=== PATIENT | male | born 1965 | race Caucasian/White ===

== ENCOUNTER 2024-03-22 05:38 | Inpatient (IN) | payer BC, SELFPAY ==
[2024-03-22] VITALS (14 sets, daily range): BP systolic 135–158; BP diastolic 81–116; PULSE 87–104; RESP 12–26; TEMP 36.6–37.6; O2SAT 94–100
--- NOTE | ~2024-03-22 | XR_ITS ---
EXAMINATION: XR chest 1V portable DATE: 03/22/2024 06:40 INDICATION: Ethanol withdrawal. TECHNIQUE: A single frontal view of the chest was obtained on 2 radiographs. COMPARISON: None. FINDINGS: There is no pneumonia, pleural effusion, or pneumothorax. The heart size is normal. IMPRESSION: 1. No acute cardiopulmonary disease. Reviewed, dictated and finalized at location E.
--- NOTE | ~2024-03-22 | US_ITS ---
EXAMINATION: US venous doppler UE DATE: 03/23/2024 13:47 INDICATION: Upper limb edema. TECHNIQUE: Grayscale ultrasound images without and with compression and Doppler ultrasound images of the bilateral upper extremity veins were obtained. COMPARISON: None. FINDINGS: The visualized portions of the right internal jugular vein, subclavian vein, axillary vein, brachial veins, basilic vein, cephalic vein, radial vein, and ulnar vein are patent. The visualized portions of the left internal jugular vein, subclavian vein, axillary vein, brachial v eins, basilic vein, cephalic vein, radial vein, and ulnar vein are patent. IMPRESSION: 1. No deep venous thrombosis. Reviewed, dictated and finalized at location E.
--- NOTE | ~2024-03-22 | US_ITS ---
EXAMINATION: US venous doppler [facility] DATE: 03/23/2024 14:01 INDICATION: Bilateral lower limb swelling TECHNIQUE: Grayscale ultrasound images without and with compression and Doppler ultrasound images of the bilateral lower extremity veins were obtained. COMPARISON: None. FINDINGS: The visualized portions of right common femoral vein, profunda (deep) femoral vein, femoral vein, pop liteal vein, posterior tibial veins, peroneal veins, gastrocnemius vein and greater saphenous vein ou tflow are patent. The visualized portions of left common femoral vein, profunda femoral vein, femoral vein, popliteal v ein, posterior tibial veins, peroneal veins, gastrocnemius vein and greater saphenous vein outflow ar e patent. IMPRESSION: 1. No deep venous thrombosis in either lower limb. Reviewed, dictated and finalized at location A.
--- NOTE | 2024-03-22 05:45 | ECG_ITS ---
Test Date: 2024-03-22 06:00:59 Measurements Intervals [place] Rate: 99 P: 73 OK: 183 QRS: 93 QRSD: 101 T: 52 QT: 350 QTc: 450 Interpretive Statements BASELINE ARTIFACT, REDUCED ECG QUALITY SINUS RHYTHM WITH OCCASIONAL VENTRICULAR PREMATURE COMPLEXES BORDERLINE RIGHT AXIS DEVIATION [QRS AXIS > 90] CONSIDER PREVIOUS ANTEROSEPTAL NV ABNORMAL ECG No previous ECG available for comparison Electronically Signed On 03-22-2024 15:16:40 CDT by Harry Betancourt M.D.
--- NOTE | 2024-03-22 05:59 | ED.GENADULT ---
HPI - General Adult General Chief complaint: Alcohol Stated complaint: etoh withdrawl Time Seen by Provider: 03/22/24 05:57 History of Present Illness HPI narrative: This is a 59-year-old male presenting ED with chief complaint of alcohol withdrawal. Patient says he has been a chronic alcoholic for 10 years. He drinks around 2 gal of vodka a day. Patient says that his last drink was 12 hours ago when he had 2 beers to try to stave off his alcohol withdrawals. Patient is now complaining of tremors, anxiety, diaphoresis. Patient has a history of alcohol withdrawal seizures Related Data Allergies Allergy/AdvReac Type Severity Reaction Status Date / Time No Known Allergies Allergy Verified 03/22/24 05:43 [facility] Past Medical History Medical History Diabetes ETOHism HTN (hypertension) Exam Narrative: APPEARANCE: Patient appears uncomfortable, coarse tremors Head: atraumatic. EYES: EOMI, NOSE: Atraumatic NECK: Trachea midline RESPIRATORY: No increased rate of breathing CTAB CARDIOVASCULAR: tachycardic ABDOMINAL: distended, soft no guarding or rebound. MUSCULOSKELETAl: No obvious deformities NEURO: Alert. Moving 4/4 extremities SKIN:: diaphoretic PSYCHIATRIC: Normal affect Course Vital Signs Vital signs: Vital Signs Temperature 98.3 F 03/22/24 05:34 Pulse Rate 101 H 03/22/24 05:34 Respiratory Rate 03/22/24 05:34 Blood Pressure 157/116 H 03/22/24 05:34 Pulse Oximetry 100 03/22/24 05:34 Oxygen Delivery Room Air 03/22/24 05:34 Temperature 98.3 F 03/22/24 05:34 Pulse Rate 101 H 03/22/24 05:34 Respiratory Rate 17 03/22/24 05:34 Blood Pressure 157/116 H 03/22/24 05:34 Pulse Oximetry 100 03/22/24 05:34 Oxygen Delivery Room Air 03/22/24 05:34 Medical Decision Making MDM Narrative Medical decision making narrative: -Course: 59-year-old male history of alcohol abuse presenting for withdrawal. last drink 12 hours ago. the patient's alcohol levels undetectable. Patient wants to stop drinking. CIWA score of 11. no signs of DTs. Given Ativan and Librium, 1L Normal saline and thiamine. patient is hypomagnesemic which will be repleted. Patient be admitted for management of alcohol withdrawal. UA and UDS pending at time of admission. 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 alcohol undetectable Independent EKG interpretation: Rhythm [sinus], Rate [100], Roy -[normal], IA -[normal], QRS [narrow], QTC [normal], T waves -[negative for concerning inversions], ST Segments - [Negative for concerning elevations] Final interpretations: [Normal Sinus Rhythm] -Discussion of Management/Consultants: Marlin - Hospitalist -Interventions: 2 L normal saline, 25 mg Librium, 2mg ativan, Thiamine 500mg, 2 g mag -Shared decision making / Disposition: admitted Vital Signs Vital Signs: Vital Signs Temperature 98.3 F 03/22/24 05:34 Pulse Rate 101 H 03/22/24 05:34 Respiratory Rate 17 03/22/24 05:34 Blood Pressure 157/116 H 03/22/24 05:34 Pulse Oximetry 100 03/22/24 05:34 Oxygen Delivery Room Air 03/22/24 05:34 Temperature 98.3 F 03/22/24 05:34 Pulse Rate 101 H 03/22/24 05:34 Respiratory Rate 17 03/22/24 05:34 Blood Pressure 157/116 H 03/22/24 05:34 Pulse Oximetry 100 03/22/24 05:34 Oxygen Delivery Room Air 03/22/24 05:34 Discharge Plan Discharge Clinical Impression: ETOHism, Alcohol withdrawal Patient Disposition: Still a Patient Condition: Stable Follow-up/Referrals: UNKNOWN,DOCTOR [Primary Care Provider] -
[2024-03-22] MEDS: SODIUM CHLORIDE 0.9% IV 1,000 ML 999 ML IV CONT ×2 (06:01→06:02)
[2024-03-22 06:05] LABS: Basophils Percent Auto 0.8 % (0.2-1.2); Eosinophils Absolute Auto 0.4 K/mm3 (0-0.3); Eosinophils Percent Auto 7.2 % (0-4.4); Hematocrit 35.3 % (42.0-52.0); Hemoglobin 12.3 g/dL (14.0-18.0); Immature Granulocyte Absolute 0.02 K/mm3 (0.00-0.031); Immature Granulocyte Percent A 0.4 % (0-0.5); Lymphocytes Percent Auto 46.6 % (18.3-44.2); Mean Corpuscular HGB Conc 34.8 g/dl (32-36); Mean Corpuscular Hemoglobin 36.9 pg (26-34); Mean Platelet Volume 10.6 fl (7.4-10.4); Monocytes Absolute Auto 0.8 K/mm3 (0.1-0.6); Monocytes Percent Auto 15.7 % (2.6-8.5); Neutrophils Absolute Auto 1.5 K/mm3 (1.3-6.7); Neutrophils Percent Auto 29.3 % (45.5-73.1); Platelet Count Result 154 k/mm3 (150-375); Red Blood Count 3.33 M/mm3 (4.6-6.20); Red Cell Distribution Width 13.4 % (11.5-14.5); White Blood Count 5.2 K/mm3 (4.5-10.0)
[2024-03-22] MEDS: THIAMINE 500 MG/NS 100 ML 500 MG/100 ML BAG 200 MG IVPB (06:18)
[2024-03-22 06:32] LABS: Ethanol < 10 mg/dL (<10)
--- NOTE | 2024-03-22 06:32 | ECG_ITS ---
Test Date: 2024-03-22 06:54:13 Measurements Intervals [place] Rate: 100 P: 60 AR: 173 QRS: 86 QRSD: 96 T: 34 QT: 367 QTc: 473 Interpretive Statements SINUS TACHYCARDIA SEPTAL MYOCARDIAL INFARCTION , PROBABLY OLD [40+ ms Q WAVE IN V1/V2] BORDERLINE RIGHTWARD AXIS ABNORMAL ECG Compared to ECG 03/22/2024 06:00:59 NO OBVIOUS DIFFERENCE Electronically Signed On 03-22-2024 15:17:24 CDT by Harry Betancourt M.D.
[2024-03-22 06:34] LABS: Macrocytosis 1+ (NORMAL); Platelet Estimate Adequate (Adequate); Schistocytes None Seen
[2024-03-22 06:43] LABS: Alanine Aminotransferase 49 U/L (6-50); Albumin Level 3.5 g/dL (3.5-5.1); Alkaline Phosphatase 48 U/L (38-126); Anion Gap 12 mmol/L (4-12); Aspartate Amino Transferase 55 U/L (17-59); Bilirubin,Total 0.3 mg/dL (0.2-1.3); Blood Urea Nitrogen 13 mg/dL (9-20); Calcium 9.1 mg/dL (8.4-10.2); Carbon Dioxide 21 mmol/L (22-30); Chloride 102 mmol/L (98-107); Estimated CRCL calculation 118 ml/min; Estimated Glomerular Filt Rate > 60; Glucose 340 mg/dL (65-110); Lipase 234 U/L (23-300); Magnesium 1.3 mg/dL (1.6-2.3); Potassium 3.5 mmol/L (3.4-5.0); Sodium 135 mmol/L (137-145)
--- NOTE | 2024-03-22 06:50 | PC.NURSE ---
Bedside glucose is 319.
[2024-03-22 06:51] LABS: Glucose Point of Care 319 mg/dl (65-105)
[2024-03-22] MEDS: LORazepam INJ (*CRX) 2 MG/ML VIAL IV PUSH ×2 (06:51→20:59)
[2024-03-22] MEDS: chlordiazePOXIDE (*CRX) 25 MG CAPSULE PO ×2 (06:51→18:05)
[2024-03-22 07:07] LABS: Appearance Urine Clear (Clear); Bilirubin Urine Negative (Negative); Blood Urine Negative (Negative); Color Urine Yellow (Yellow); Glucose Urine UA 3+ mg/dL (Negative); Ketones Urine Trace mg/dL (Negative); Leukocyte Esterase Ur Negative LEU/UL (Negative); Nitrate Urine Negative (Negative); Protein Urine Negative (Negative); Specific Grav Ur 1.029 (1.001-1.035); Urobilinogen Urine 0.2 mg/dL (<2.0)
[2024-03-22] MEDS: MAGNESIUM SULF 2 GM/WATER 50ML 2 GM/50 ML BAG IVPB (07:09)
[2024-03-22 07:16] LABS: Add Urine Microscopic? NO
[2024-03-22 07:23] LABS: Amphetamine Screen Urine Negative (Negative); Barbiturate Screen Urine Negative (Negative); Benzodiazepines Screen Urine Positive (Negative); Cannabinoid Screen Urine Positive (Negative); Cocaine Screen Urine Negative (Negative); Methadone Screen Urine Negative (Negative); Opiate Screen Urine Negative (Negative); Phencyclidine Screen Urine Negative (Negative)
--- NOTE | 2024-03-22 08:07 | ADMGEN ---
This patient, Bro Padron, was admitted to Intensive Care Unit-6. Patient/family oriented to hospital policies and general routines including ID bracelet, bed and alarms, visiting hours, pain management, procedures, bathroom and other care routines, personal items, smoking policy, room service/diet, and visiting hours. Information on how to activate the Rapid Response Team has been discussed. Patient/Family are encouraged to report perceived risks to care and to ask questions if they do not understand what they are told or what they should do.
[2024-03-22] MEDS: THIAMINE HCL 200 MG/2 ML VIAL 100 MG IV PUSH (09:29)
[2024-03-22 11:44] LABS: Glucose Point of Care 192 mg/dl (65-105)
--- NOTE | 2024-03-22 13:57 | PM.IMHP ---
H&P: HPI History of Present Illness Date/Time: 03/22/24 14:00 Chief Complaint: Alcohol withdrawal. Narrative: This is a 59-year-old male with history of alcohol abuse, alcohol withdrawal seizures, coronary artery disease status post stent, hepatitis-C, and hypertension who presented to the emergency department via EMS from with symptoms of alcohol withdrawal. The patient provides the following history. He has never been seen at this facility; he is in the area for a job and is from [place]. He has been heavy drinker for at least 10 years and can drink up to to handles of vodka a day. He has had periods of sobriety or will go for a few days without drinking however the withdrawal symptoms seem to drive him back to drinking. His last drink was about 12 hours ago and this morning he has started to experience significant anxiety, sweats, tremors, nausea, and vomiting. He has also noticed swelling in his extremities the last couple of days which he thinks is due to the drinking in the heat. He thinks he may have had a seizure today but cannot provide specifics. He denies fever, cold and flu symptoms, chest pain, pleuritic pain, shortness of breath, hematemesis, melena, hematochezia, dysuria, and diarrhea. In fact he reports being constipated and states he has not had a bowel movement for approximately 5 days. In the ED: He was tachycardic with a blood pressure of 157/116 on arrival. Labs were significant for WBC count of 5.2, hemoglobin 12.3, MCV 106, sodium 135, potassium 3.5, magnesium 1.3, glucose 340. Urine was positive for 3+ glucose and trace ketones. He tested positive for benzodiazepines and cannabinoids. Chest x-ray showed no acute cardiopulmonary disease. He was given thiamine 100 mg IV, magnesium sulfate 2 g IV, 2 L normal saline, and lorazepam 2 mg and he is being admitted in this setting for further treatment. Review of Systems Review of Systems: 12 systems were reviewed and are negative except for as per HPI. [facility] Past Medical History Medical History (Updated 03/22/24 @ 23:44 by Ladi Madden PA-C) Alcohol abuse Alcohol withdrawal seizure Coronary artery disease Hypertension Type 2 diabetes mellitus Surgical History Surgical History (Updated 03/22/24 @ 23:44 by Ladi Madden PA-C) History of cardiac catheterization History of coronary artery stent placement Family History Family History Other Unknown family medical history Social History Social History (Updated 03/22/24 @ 23:45 by Ladi Madden PA-C) Social History: Surrogate decision maker: Patient provides no surrogate decision maker. He gives us permission to call his friend, Jonnie Ansari, ?only if I ?. Code status: Full code. Tobacco type: smokeless tobacco Alcohol intake: current Alcohol use details: Up to 2 handles of vodka a day. Substance use type: marijuana Additional living arrangements comments: From [place]. He is in [place] for job at the moment. 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 Meds Home Medications and Allergies Home Medications Medication Instructions Recorded Confirmed Type folic acid 1 mg tablet 1 mg PO DAILY 03/22/24 03/22/24 History furosemide 20 mg tablet 20 mg PO DAILY 03/22/24 03/22/24 History gabapentin 300 mg capsule 300 mg PO TID 03/22/24 03/22/24 History lisinopril 10 mg tablet 10 mg PO DAILY 03/22/24 03/22/24 History metformin 1,000 mg tablet 1,000 mg PO BID 03/22/24 03/22/24 History quetiapine 100 mg tablet 600 mg PO HS 03/22/24 03/22/24 History Allergies Allergy/AdvReac Type Severity Reaction Status Date / Time No Known Allergies Allergy Verified 03/22/24 05:43 Vital Signs Vital Signs - 24 hr 03/22/24 05:34 03/22/24 06:07 03/22/24 06:32 Temperature 98.3 F Pulse Rate 101 H 101 H 101 H Respiratory Rate 17 26 H 23 H Blood Pressure 157/116 H 155/100 H 156/81 H Pulse Oximetry 100
[2024-03-23] VITALS (13 sets, daily range): BP systolic 142–163; BP diastolic 73–110; PULSE 69–93; RESP 16–21; TEMP 36.4–37; O2SAT 90–100
[2024-03-23] MEDS: MAGNESIUM HYDROXIDE SUSP 30 ML UDC PO (00:12)
[2024-03-23] MEDS: QUEtiapine FUMARATE 100 MG TABLET PO ×2 (00:12→21:33)
[2024-03-23 00:17] LABS: Glucose Point of Care 287 mg/dl (65-105)
[2024-03-23] MEDS: LORazepam INJ (*CRX) 2 MG/ML VIAL IV PUSH ×4 (00:18→21:33)
[2024-03-23] MEDS: chlordiazePOXIDE (*CRX) 25 MG CAPSULE PO ×2 (04:05→09:50)
[2024-03-23 04:45] LABS: Hematocrit 36.8 % (42.0-52.0); Hemoglobin 12.3 g/dL (14.0-18.0); Mean Corpuscular HGB Conc 33.4 g/dl (32-36); Mean Corpuscular Hemoglobin 37.3 pg (26-34); Mean Corpuscular Volume 111.5 fl (80-100); Mean Platelet Volume 10.6 fl (7.4-10.4); Platelet Count Result 126 k/mm3 (150-375); Red Cell Distribution Width 13.2 % (11.5-14.5); White Blood Count 4.8 K/mm3 (4.5-10.0)
[2024-03-23 05:08] LABS: Alanine Aminotransferase 51 U/L (6-50); Alkaline Phosphatase 25 U/L (38-126); Anion Gap 4 mmol/L (4-12); Aspartate Amino Transferase 55 U/L (17-59); Bilirubin,Total 0.6 mg/dL (0.2-1.3); Blood Urea Nitrogen 14 mg/dL (9-20); Calcium 8.3 mg/dL (8.4-10.2); Carbon Dioxide 27 mmol/L (22-30); Chloride 106 mmol/L (98-107); Creatine Kinase 112 U/L (55-170); Estimated CRCL calculation 118 ml/min; Estimated Glomerular Filt Rate > 60; Glucose 140 mg/dL (65-110); Magnesium 1.9 mg/dL (1.6-2.3); Potassium 4.1 mmol/L (3.4-5.0); Sodium 137 mmol/L (137-145)
[2024-03-23] MEDS: GABAPENTIN 300 MG CAPSULE PO ×3 (08:08→20:50)
[2024-03-23] MEDS: FUROSEMIDE 20 MG TABLET PO (08:08)
[2024-03-23] MEDS: lisinopriL 10 MG TABLET PO (08:08)
[2024-03-23] MEDS: THIAMINE HCL 200 MG/2 ML VIAL 100 MG IV PUSH (08:08)
[2024-03-23] MEDS: ENOXAPARIN 40 MG/0.4 ML SYRINGE SUB-Q (08:08)
[2024-03-23] MEDS: FOLIC ACID 1 MG TABLET PO (08:08)
--- NOTE | 2024-03-23 08:10 | PC.NURSE ---
Patient complains of IV pain with ativan administration. Administration stopped post 2 ml of 10 ml diluted ativan infusion. Blood return noted and no signs of infiltration noted to IV site post administration. Flushed with saline without complaints. Keily Counts notified of need for IV per patient request.
--- NOTE | 2024-03-23 09:00 | PC.NURSE ---
New IV initiated per D Counts. Patient veins reported to be poor. Patient complains of pain again with ativan administration in new IV. Again, Blood return noted post infusion and no signs of infiltration present. Patient demands new IV and repeat ativan infusion. States I've done enough dope in my life to know that if it hurts, it wont work. Patient notified ativan infusion can be painful despite dilution. Patient repeats demand for another dose. Explained dose cannot be repeated as potential for respiratory depression with duplicate IV ativan dosing. Patient states did not receive dose due to pain. Patient educated on possibility of pain with IV ativan administration repeated. Notified new IV can be attempted but patient's veins are poor and attempt may not be successful. Patient states he does not have poor veins. Patient demands to speak with my purification supervisor. Romelia, charge nurse, notified.
[2024-03-23 11:44] LABS: Glucose Point of Care 185 mg/dl (65-105)
--- NOTE | 2024-03-23 13:50 | PM.IMPN ---
Progress Note: A&P Assessment and Plan (1) Alcohol withdrawal: Code(s): F10.939 - Alcohol use, unspecified with withdrawal, unspecified Status: Acute (2) Hypomagnesemia: Code(s): E83.42 - Hypomagnesemia Status: Acute (3) Macrocytic anemia: Code(s): D53.9 - Nutritional anemia, unspecified Status: Acute (4) Type 2 diabetes mellitus: Code(s): E11.9 - Type 2 diabetes mellitus without complications Status: Acute (5) Hypertension: Code(s): I10 - Essential (primary) hypertension Status: Acute Plan This is a 59-year-old male with history of alcohol abuse, alcohol withdrawal seizures, coronary artery disease status post stent, hepatitis-C, and hypertension who presented to the emergency department via EMS from with symptoms of alcohol withdrawal. The patient provides the following history. He has never been seen at this facility; he is in the area for a job and is from [place]. He has been heavy drinker for at least 10 years and can drink up to to handles of vodka a day. He has had periods of sobriety or will go for a few days without drinking however the withdrawal symptoms seem to drive him back to drinking. His last drink was about 12 hours ago and this morning he has started to experience significant anxiety, sweats, tremors, nausea, and vomiting. He has also noticed swelling in his extremities the last couple of days which he thinks is due to the drinking in the heat. He thinks he may have had a seizure today but cannot provide specifics. He denies fever, cold and flu symptoms, chest pain, pleuritic pain, shortness of breath, hematemesis, melena, hematochezia, dysuria, and diarrhea. In fact he reports being constipated and states he has not had a bowel movement for approximately 5 days. In the ED: He was tachycardic with a blood pressure of 157/116 on arrival. Labs were significant for WBC count of 5.2, hemoglobin 12.3, MCV 106, sodium 135, potassium 3.5, magnesium 1.3, glucose 340. Urine was positive for 3+ glucose and trace ketones. He tested positive for benzodiazepines and cannabinoids. Chest x-ray showed no acute cardiopulmonary disease. He was given thiamine 100 mg IV, magnesium sulfate 2 g IV, 2 L normal saline, and lorazepam 2 mg and he is being admitted in this setting for further treatment. Last drink was approximately 12 hours prior to presentation. He has a history of alcohol withdrawal seizures and admitted for alcohol withdrawal. On CIWA protocol. Schedule Librium. Will increase to 50 q.8. He has also been started on thiamine and folic acid supplementation. Hold on further IV fluids given mild edema in all extremities. patient is alert oriented x3 and also able to verbalize his history of present illness. If adamant at going home he is deemed decisional at this time and will need to leave against medical advice. Venous Doppler ultrasounds Negative for DVT on upper extremity lower extremities pending. Hypomagnesmia: Magnesium will be replaced and monitored. Hypertension home medication History of hepatitis-C untreated Follow-up as an outpatient basis DVT prophylaxis Lovenox Code status full code Subjective Date/time seen: 03/23/24 13:50 Interval history: Patient continues to be agitated. Adamant of discharging. Does not have a ride home. CIWA score still high 18 earlier today. No other new complaints Review of Systems Review of Systems: All systems reviewed & are unremarkable except as noted in HPI and below Exam Narrative: General: Mildly ill-appearing gentleman in the semi-Fuchs position in bed. not in acute distress HEENT: Normocephalic, atraumatic. PERRL, EOMI. Sclera anicteric. Conjunctiva mildly injected. Tacky mucous membranes. Edentulous. Neck: Supple. Respiratory: Respirations are nonlabored and he is speaking in full sentences. Lungs are clear to auscultation bilaterally. Cardiovascular: Regular rate and rhythm with S1-S2. Gastr
[2024-03-23] MEDS: chlordiazePOXIDE (*CRX) 25 MG CAPSULE 50 MG PO (17:51)
[2024-03-23 18:18] LABS: Glucose Point of Care 216 mg/dl (65-105)
[2024-03-24] VITALS (12 sets, daily range): BP systolic 132–160; BP diastolic 60–109; PULSE 73–85; RESP 15–18; TEMP 36.3–36.9; O2SAT 90–98
[2024-03-24] MEDS: chlordiazePOXIDE (*CRX) 25 MG CAPSULE 50 MG PO ×3 (00:49→17:07)
[2024-03-24] MEDS: FUROSEMIDE 20 MG TABLET PO (08:29)
[2024-03-24] MEDS: FOLIC ACID 1 MG TABLET PO (08:29)
[2024-03-24] MEDS: lisinopriL 10 MG TABLET PO (08:29)
[2024-03-24] MEDS: ENOXAPARIN 40 MG/0.4 ML SYRINGE SUB-Q (08:29)
[2024-03-24] MEDS: LORazepam INJ (*CRX) 2 MG/ML VIAL IV PUSH ×4 (08:31→21:23)
[2024-03-24] MEDS: THIAMINE HCL 200 MG/2 ML VIAL 100 MG IV PUSH (08:32)
[2024-03-24 09:28] LABS: Basophils Percent Auto 0.7 % (0.2-1.2); Eosinophils Absolute Auto 0.5 K/mm3 (0-0.3); Eosinophils Percent Auto 8.5 % (0-4.4); Hematocrit 37.3 % (42.0-52.0); Hemoglobin 12.9 g/dL (14.0-18.0); Immature Granulocyte Absolute 0.02 K/mm3 (0.00-0.031); Immature Granulocyte Percent A 0.4 % (0-0.5); Lymphocytes Absolute Auto 1.66 K/mm3 (0.9-3.2); Lymphocytes Percent Auto 29.3 % (18.3-44.2); Mean Corpuscular HGB Conc 34.6 g/dl (32-36); Mean Corpuscular Hemoglobin 37.1 pg (26-34); Mean Corpuscular Volume 107.2 fl (80-100); Mean Platelet Volume 10.2 fl (7.4-10.4); Monocytes Absolute Auto 0.4 K/mm3 (0.1-0.6); Monocytes Percent Auto 7.6 % (2.6-8.5); Neutrophils Percent Auto 53.5 % (45.5-73.1); Platelet Count Result 146 k/mm3 (150-375); Red Blood Count 3.48 M/mm3 (4.6-6.20); Red Cell Distribution Width 13.2 % (11.5-14.5); White Blood Count 5.7 K/mm3 (4.5-10.0)
[2024-03-24 09:38] LABS: Alanine Aminotransferase 66 U/L (6-50); Albumin Level 3.3 g/dL (3.5-5.1); Alkaline Phosphatase 32 U/L (38-126); Anion Gap 4 mmol/L (4-12); Aspartate Amino Transferase 71 U/L (17-59); Bilirubin,Total 0.4 mg/dL (0.2-1.3); Blood Urea Nitrogen 17 mg/dL (9-20); Calcium 8.5 mg/dL (8.4-10.2); Carbon Dioxide 31 mmol/L (22-30); Chloride 102 mmol/L (98-107); Estimated CRCL calculation 108 ml/min; Estimated Glomerular Filt Rate > 60; Glucose 215 mg/dL (65-110); Magnesium 1.7 mg/dL (1.6-2.3); Potassium 4.1 mmol/L (3.4-5.0); Sodium 137 mmol/L (137-145)
[2024-03-24 09:48] LABS: Macrocytosis 1+ (NORMAL); Platelet Estimate Slightly Decreased (Adequate); Schistocytes None Seen
--- NOTE | 2024-03-24 12:00 | PM.IMPN ---
Progress Note: A&P Assessment and Plan (1) Alcohol withdrawal: Code(s): F10.939 - Alcohol use, unspecified with withdrawal, unspecified Status: Acute (2) Hypomagnesemia: Code(s): E83.42 - Hypomagnesemia Status: Acute (3) Macrocytic anemia: Code(s): D53.9 - Nutritional anemia, unspecified Status: Acute (4) Type 2 diabetes mellitus: Code(s): E11.9 - Type 2 diabetes mellitus without complications Status: Acute (5) Hypertension: Code(s): I10 - Essential (primary) hypertension Status: Acute Plan Last drink was approximately 12 hours prior to presentation. He has a history of alcohol withdrawal seizures and admitted for alcohol withdrawal. On CIWA protocol. On scheduled Librium at 50 q.8. He has also been started on thiamine and folic acid supplementation. Monitor CIWA. Holding further IV fluids given mild edema in all extremities. Venous Doppler ultrasounds Negative for DVT in the upper and lower extremities. Hypomagnesemia noted and better after replacement. Hypertension: Patient's blood pressure was reviewed on 03/24. Blood pressure remains well controlled. Anemia - check iron, B12 etc DM - glucose elevated at times but overall reasonably well conrolled. History of hepatitis-C that is untreated. Follow-up as an outpatient basis On Seroquel at home listed at 600mg QHS. Only on 100mg dose here. Unclear if he is taking this much. Will advance to 150mg daily and slowly advance as tolerated. DVT prophylaxis Lovenox Code status full code Subjective Date/time seen: 03/24/24 12:00 Interval history: 59yo male with alcoholism, CAD, hx of withdrawal seizures, HTN and DM here for alcohol withdrawal. Assuming care. Chart reviewed. He is eating okay. Slept well last night. No CP or SOB. No n/v. He denies hallucinations but told the RN earlier that he was. Exam Narrative: AF 98.4 132/76 77 15 96% ra Gen - NARD Chest - CTA bilaterally, nml RR CV - RRR S1/S2. Tele showing no significant dysrhythmias Abd - Soft, obese, NT Ext - No pedal edema Psych - Nml mood and affect Skin - Warm and dry Objective Data Vital Signs Vital Signs: Vital Signs - 24 hr 03/23/24 14:00 03/23/24 16:00 03/23/24 16:00 Temperature 98.6 F Pulse Rate 84 75 69 Respiratory Rate 20 20 Blood Pressure 163/110 H Pulse Oximetry 98 94 Oxygen Delivery Room Air Fraction of Inspired Oxygen 03/23/24 16:00 03/23/24 18:00 03/23/24 20:45 Temperature Pulse Rate 69 82 81 Respiratory Rate 17 Blood Pressure Pulse Oximetry 90 Oxygen Delivery Room Air Fraction of Inspired Oxygen 28 03/23/24 20:00 03/23/24 20:00 03/23/24 22:00 Temperature 98.6 F Pulse Rate 81 80 85 Respiratory Rate 17 Blood Pressure 142/73 H Pulse Oximetry 90 Oxygen Delivery Fraction of Inspired Oxygen 03/24/24 00:05 03/24/24 00:00 03/24/24 00:00 Temperature 98.4 F Pulse Rate 85 80 81 Respiratory Rate 17 15 Blood Pressure 146/83 H Pulse Oximetry 90 94 Oxygen Delivery Room Air Fraction of Inspired Oxygen 28 03/24/24 02:00 03/24/24 03:52 03/24/24 04:00 Temperature 98.2 F Pulse Rate 75 75 74 Respiratory Rate 17 16 Blood Pressure 160/109 H Pulse Oximetry 90 95 Oxygen Delivery Room Air Fraction of Inspired Oxygen 28 03/24/24 04:00 03/24/24 06:00 03/24/24 08:00 Temperature 98.4 F Pulse Rate 79 73 79 Respiratory Rate 15 Blood Pressure 132/76 Pulse Oximetry 94 Oxygen Delivery Fraction of Inspired Oxygen 03/24/24 08:27 03/24/24 08:00 03/24/24 10:00 Temperature Pulse Rate 78 77 Respiratory Rate Blood Pressure Pulse Oximetry 96 Oxygen Delivery Room Air Fraction of Inspired Oxygen 21 Intake/Output Intake/Output: Intake & Output 03/21/24 03/22/24 03/23/24 03/24/24 23:59 23:59 23:59 23:59 Intake Total 5140 1345 630 Output Total 9326 9029 4058 Balance 7600 -2359 -122
[2024-03-24 12:26] LABS: Glucose Point of Care 178 mg/dl (65-105)
[2024-03-24] MEDS: GABAPENTIN 300 MG CAPSULE PO ×2 (14:00→21:05)
--- NOTE | 2024-03-24 15:00 | PC.NURSE ---
Report given to ALEXANDR Yates. Prior to transferring patient 1600 CIWA completed and treated with PRN ativan as ordered, 1800 Librium given as scheduled. Transferred via wheelchair with all personal belongings and medications
--- NOTE | 2024-03-24 17:17 | PC.NURSE ---
This patient, Bro Padron, was received from icu on 03/24/24 at 1717. Patient/family oriented to unit policies and routines
[2024-03-24] MEDS: polyethylene glycoL 3350 17 GM POWD.PACK PO (17:57)
[2024-03-24] MEDS: QUEtiapine FUMARATE 25 MG TABLET 50 MG PO (21:05)
[2024-03-24] MEDS: QUEtiapine FUMARATE 100 MG TABLET PO (21:05)
[2024-03-25] LABS: Glucose Point of Care 210 mg/dl (65-105)
[2024-03-25] MEDS: chlordiazePOXIDE (*CRX) 25 MG CAPSULE 50 MG PO ×2 (02:33→08:46)
[2024-03-25] MEDS: GABAPENTIN 300 MG CAPSULE PO ×2 (06:12→13:57)
[2024-03-25 06:41] LABS: Glucose Point of Care 173 mg/dl (65-105)
[2024-03-25 06:46] VITALS: BP 123/81; PULSE 74; RESP 18; TEMP 36.1; O2SAT 94
[2024-03-25 07:16] LABS: Basophils Absolute Auto 0.1 K/mm3 (0.0-0.1); Basophils Percent Auto 0.8 % (0.2-1.2); Eosinophils Absolute Auto 0.4 K/mm3 (0-0.3); Eosinophils Percent Auto 6.7 % (0-4.4); Hematocrit 41.1 % (42.0-52.0); Hemoglobin 13.7 g/dL (14.0-18.0); Immature Granulocyte Absolute 0.03 K/mm3 (0.00-0.031); Immature Granulocyte Percent A 0.5 % (0-0.5); Immature Platelet Fraction Pct 6.6 % (0.9-11.2); Lymphocytes Percent Auto 36.1 % (18.3-44.2); Mean Corpuscular HGB Conc 33.3 g/dl (32-36); Mean Corpuscular Hemoglobin 36.3 pg (26-34); Mean Platelet Volume 11.1 fl (7.4-10.4); Monocytes Absolute Auto 0.5 K/mm3 (0.1-0.6); Monocytes Percent Auto 8.2 % (2.6-8.5); Neutrophils Absolute Auto 2.9 K/mm3 (1.3-6.7); Neutrophils Percent Auto 47.7 % (45.5-73.1); Platelet Count Result 153 k/mm3 (150-375); Red Blood Count 3.77 M/mm3 (4.6-6.20); Red Cell Distribution Width 13.2 % (11.5-14.5); White Blood Count 6.1 K/mm3 (4.5-10.0)
[2024-03-25 07:33] LABS: Alanine Aminotransferase 79 U/L (6-50); Albumin Level 3.6 g/dL (3.5-5.1); Alkaline Phosphatase 30 U/L (38-126); Anion Gap 4 mmol/L (4-12); Aspartate Amino Transferase 74 U/L (17-59); Bilirubin,Total 0.5 mg/dL (0.2-1.3); Blood Urea Nitrogen 21 mg/dL (9-20); Calcium 8.8 mg/dL (8.4-10.2); Carbon Dioxide 29 mmol/L (22-30); Chloride 104 mmol/L (98-107); Estimated CRCL calculation 109 ml/min; Estimated Glomerular Filt Rate > 60; Glucose 169 mg/dL (65-110); Magnesium 1.8 mg/dL (1.6-2.3); Sodium 137 mmol/L (137-145)
[2024-03-25 07:41] LABS: Iron 149 ug/dL (49-181)
[2024-03-25 07:53] LABS: Percent Iron Saturation 52 % (20-50)
[2024-03-25 08:05] LABS: Macrocytosis 1+ (NORMAL); Platelet Estimate Decreased (Adequate); Schistocytes None Seen
[2024-03-25 08:33] LABS: Folic Acid 17.1 ng/mL (2.76->20)
[2024-03-25] MEDS: THIAMINE HCL 100 MG TABLET PO (08:46)
[2024-03-25] MEDS: lisinopriL 10 MG TABLET PO (08:46)
[2024-03-25] MEDS: polyethylene glycoL 3350 17 GM POWD.PACK PO (08:46)
[2024-03-25] MEDS: FOLIC ACID 1 MG TABLET PO (08:46)
[2024-03-25] MEDS: FUROSEMIDE 20 MG TABLET PO (08:46)
[2024-03-25] MEDS: ENOXAPARIN 40 MG/0.4 ML SYRINGE SUB-Q (08:52)
[2024-03-25] MEDS: LORazepam INJ (*CRX) 2 MG/ML VIAL IV PUSH (08:53)
[2024-03-25 11:56] LABS: Glucose Point of Care 331 mg/dl (65-105)
[2024-03-25 12:00] VITALS: BP 121/61; PULSE 74; RESP 20; O2SAT 98
[2024-03-25 13:28] LABS: Glucose Point of Care 299 mg/dl (65-105)
[2024-03-25 14:00] VITALS: BP 125/58; PULSE 80; RESP 20; TEMP 36.4; O2SAT 98
--- NOTE | 2024-03-25 14:40 | PC.NURSE ---
1430 patient left AMA, IV removed, he refused to sign AMA papers. I explained to him that we are not responsible for him once he leaves his room. He dressed himself and walked out to the elevators. He was made aware of the dangers of leaving without the Drs discharge. I educated him that his condition could get worse, and that could be a result of not continuing care as directed by the physician.
--- NOTE | 2024-03-25 15:16 | PC.NURSE ---
all home medications were returned to the patient in a large white bag that he brought them in.
--- NOTE | 2024-03-25 19:07 | PM.DS ---
DS: Admitting Diagnosis Discharge Date 03/25/24 Admitting Diagnosis Alcohol withdrawal DS: Discharge Diagnosis Discharge Diagnosis (1) Alcohol withdrawal: Code(s): F10.939 - Alcohol use, unspecified with withdrawal, unspecified Status: Acute (2) Hypomagnesemia: Code(s): E83.42 - Hypomagnesemia Status: Acute (3) Macrocytic anemia: Code(s): D53.9 - Nutritional anemia, unspecified Status: Acute (4) Type 2 diabetes mellitus: Code(s): E11.9 - Type 2 diabetes mellitus without complications Status: Acute (5) Hypertension: Code(s): I10 - Essential (primary) hypertension Status: Acute DS: Summary Hospital Course Reason for hospitalization: 59yo male with alcoholism, CAD, hx of withdrawal seizures, HTN and DM here for alcohol withdrawal. Please see H&P for details. Hospital Course: Last drink was approximately 12 hours prior to presentation. He has a history of alcohol withdrawal seizures and was admitted for alcohol withdrawal. He was placed on a CIWA protocol. Scheduled Librium started. Thiamine and folic acid supplementation added. Lower extremity venous Doppler was negative for DVT in the upper and lower extremities. Hypomagnesemia noted and was replaced. he has HTN and blood pressure remained well controlled. Macrocytic anemia noted. B12 low end of normal at 254 so B12 replacement ordered but he refused. Seroquel was resumed at lower than home dose and advanced as he tolerated. For his diabetes, his glucose was elevated at times but overall reasonably well controlled. He has a history of hepatitis-C that is untreated. LFTs were mildly elevated here. he had clinical improvement. Services offered to the patient by Care Coordination. We were weaning Librium today but called by RN who stated patient decided to sign himself out against medical advise. Status at Discharge Cognitive/behavioral status at discharge: stable Time Spent with Patient Time attestation: Total time spent providing and/or coordinating discharge services: 32 minutes Time spent: Greater than 30 minutes Exam Narrative: AF 97.5 125/58 80 20 98% ra Gen - NARD Chest - few basilar crackles o/w clear. nml RR CV - RRR S1/S2 Abd - Soft, obese, NT Ext - No pedal edema Psych - Nml mood and affect Skin - Warm and dry DS: Data Data Completed and Pending Labs on day of discharge: Labs from last 24 hours 03/25/24 03/25/24 03/25/24 13:24 11:53 06:38 WBC RBC Hgb Hct MCV MCH MCHC RDW Plt Count MPV Immature Gran % (Auto) Neut % (Auto) Lymph % (Auto) [place] % (Auto) Eos % (Auto) Baso % (Auto) Lymph # (Auto) [place] # (Auto) Eos # (Auto) Baso # (Auto) Abs Immat Gran (auto) Absolute Neuts (auto) Absolute Nucleated RBC Nucleated RBC % Platelet Estimate % Immature Plt Fraction Macrocytosis Schistocytes Sodium Potassium Chloride Carbon Dioxide Anion Gap BUN Creatinine Estim Creat Clear Calc Estimated GFR Glucose POC Capillary Glucose 299 H 331 H 173 H Calcium Magnesium Iron TIBC % Saturation Ferritin Total Bilirubin AST ALT Alkaline Phosphatase Total Protein Albumin Vitamin B12 Folate TSH (Reflex) Free T4 03/25/24 03/24/24 06:12 23:57 WBC 6.1 RBC 3.77 L Hgb 13.7 L Hct 41.1 L MCV 109.0 H MCH 36.3 H MCHC 33.3 RDW 13.2 Plt Count 153 MPV 11.1 H Immature Gran % (Auto) 0.5 Neut % (Auto) 47.7 Lymph % (Auto) 36.1 [place] % (Auto) 8.2 Eos % (Auto) 6.7 H Baso % (Auto) 0.8 Lymph # (Auto) 2.20 [place] # (Auto) 0.5 Eos # (Auto) 0.4 H Baso # (Auto) 0.1 Abs Immat Gran (auto) 0.03 Absolute Neuts (auto) 2.9 Absolute Nucleated RBC 0.000 Nucleated RBC % 0.0 Platelet Estimate Decreased % Immature Plt Fraction 6.6 Macrocytosis 1+ Kristin
== END 2024-03-25 14:30 | disposition left against medical advice (07) | DRG 894 ==
LOC: ANHED 07:04 → ANHICU 08:12 → ANH3MEDSUR 03-25 14:41 → ANHICU 03-26 11:48
PROVIDERS: Internal Medicine; Physician Assistant; Admitting Provider General Practice; Emergency Provider Emergency Medicine; Visit Provider Internal Medicine
DX: F10.239 Alcohol dependence with withdrawal, unspecified (principal); B19.20 Unspecified viral hepatitis C without hepatic coma; I10 Essential (primary) hypertension; I25.10 Atherosclerotic heart disease of native coronary artery without angina pectoris; D53.9 Nutritional anemia, unspecified; E11.9 Type 2 diabetes mellitus without complications; E83.42 Hypomagnesemia; K59.00 Constipation, unspecified; Z95.5 Presence of coronary angioplasty implant and graft
CPT/HCPCS: 36415; 71045; 80053; 80307; 81003; 82550; 82607; 82728; 82746; 82948; 83540; 83550; 83690; 83735; 84439; 84443; 85025; 85027; 85055; 93005; 93970; 96365; 96375; 99285; A9270; J1650; J2060; J3411; J3475; J7030